=== PATIENT | male | born 1970 | race Caucasian/White ===

== ENCOUNTER 2022-05-03 14:20 | Outpatient (CLI) | payer BC ==
[2022-05-03] MEDS ORDERED: GADOTERATE MEGLUMINE 7.5 MMOL/15 ML VIAL IV ONE (18:10)
== END 2022-05-03 23:59 | disposition home or self-care (01) ==
LOC: RAD 14:20 → EEVIPCON 05-04 14:30
PROVIDERS: ATTEND Family Medicine
DX: G43.009 Migraine without aura, not intractable, without status migrainosus (principal); I67.1 Cerebral aneurysm, nonruptured; G93.89 Other specified disorders of brain
CPT/HCPCS: 70544; 70553; A9575